=== PATIENT | female | born 1985 | race African-American/Black ===

== ENCOUNTER 2023-04-09 12:58 | Emergency (ER) | payer OTHER ==
[~2023-04-09] VITALS: Ht 167.6 cm; Wt 64.2 kg
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
--- NOTE | 2023-04-09 13:15 | NUR ---
DR ROSS AT BEDSIDE FOR EVAL.
[2023-04-09] MEDS ORDERED: ACETAMINOPHEN 325 MG TABLET PO ONE (13:30)
[2023-04-09] MEDS ORDERED: ACETAMINOPHEN ES 500 MG TABLET ONE (13:46)
--- NOTE | 2023-04-09 13:50 | NUR ---
PT GIVEN, TYLENOL 1000MG PO, TOLERATED WELL
--- NOTE | 2023-04-09 14:06 | NUR ---
MOTHER CAME AND AT BEDSIDE
[2023-04-09] MEDS ORDERED: TYL2T PO (15:08)
[2023-04-09 15:34] VITALS: BP 120/67
== END 2023-04-09 15:35 | disposition home or self-care (01) ==
LOC: ER 13:00
DX: S33.5XXA Sprain of ligaments of lumbar spine, initial encounter (principal); S80.12XA Contusion of left lower leg, initial encounter; S37.892A Contusion of other urinary and pelvic organ, initial encounter; Z79.899 Other long term (current) drug therapy; V89.2XXA Person injured in unspecified motor-vehicle accident, traffic, initial encounter; Y93.89 Activity, other specified; Y92.89 Other specified places as the place of occurrence of the external cause; Y99.8 Other external cause status
CPT/HCPCS: 72100-TC; 72170-TC; 73552